=== PATIENT | female | born 1980 ===

== ENCOUNTER 2017-06-23 17:51 | Emergency (ER) | payer MEDICAID ==
[2017-06-23] MEDS ORDERED: cefTRIAXone 1 GM Vial IM ONE (18:32)
--- NOTE | 2017-06-24 01:14 | ER ---
DATE OF SERVICE: 06/23/2017 HPI: A 36-year-old lady here for recheck. She was seen 3 or 4 days ago for a red swollen area involving the left eyebrow and to the lateral side over her left eye. She was put on Augmentin. She does not feel that the things are really getting worse, but things are not getting better. She states it hurts a lot and feels like there is a lot of pressure there. She denies any visual changes. The patient states she otherwise feels okay. OBJECTIVE: GENERAL APPEARANCE: The patient is awake and alert. No respiratory distress. She is uncomfortable from the pain. VITAL SIGNS: Reviewed. She is afebrile and normotensive. Examining the patient's face reveals swelling and redness involving the lateral aspect of the eyebrow above the left eye that radiates down along the lateral side of the eye orbit. This area is quite swollen and erythematous. It is warm to touch and slightly fluctuant with light palpation. She also has several other blotchy areas that are reddened across her forehead and on the patient's chin area. She has an abrasion just below the chin as well that is dry. DIAGNOSIS: Cellulitis with abscess involving the left eyebrow area. TREATMENT PLAN: I advised patient that we should incise and drain this area and she is willing to do this. The skin was gently swabbed with Betadine along the lateral side of the area of swelling. I then used an 11 blade and made a small puncture wound. I was able to see some bloody discharge followed by yellowish thick drainage that was blood tinged. With gentle pressure, I was able to decompress the area of swelling about 50%. The patient tolerated this procedure okay with tenderness. A gauze was applied as a dressing. At this point, the patient will be given Rocephin 1 g IM. We will stop the Augmentin and switch to clindamycin 300 mg t.i.d. We gave her 2 pills from the ER, one to take tonight and one the first thing in the morning. I gave her a script for 7 more days. The patient is to apply hot packs for 10 minutes or so every 2 to 3 hours while awake and she is to monitor her symptoms closely. Recheck should be in one day if her symptoms are not improving or if she gets worse. If her condition does improve, recheck should be in a couple of days in the clinic. Further evaluation of the eye reveals the sclerae is white and there is no drainage from the eye. Pt states she does feel better after the procedure. CRS/MODL /[id number] MTDD
== END 2017-06-23 18:55 | disposition home or self-care (01) ==
LOC: LB.ED 17:51
DX: L03.211 Cellulitis of face (principal); L02.01 Cutaneous abscess of face
CPT/HCPCS: 10060; 96372; 99283-25; A9270-GY; J0696